=== PATIENT | female | born 1940 | race Caucasian/White ===

== ENCOUNTER 2017-04-17 10:05 | Inpatient (IN) | payer MEDICARE, OTHER ==
[~2017-04-17] VITALS: Ht 157.5 cm; Wt 75.9 kg
[2017-04-17] MEDS ORDERED: OXYC1TAB8 PO (10:30)
[2017-04-17] MEDS ORDERED: SIMV20TA3 PO (10:30)
[2017-04-17] MEDS ORDERED: [UNRECOGNIZED DRUG - CODE] PO (10:30)
[2017-04-17] MEDS ORDERED: SODIUM CHLORIDE 0.9% 1,000ML IVBOLUS ONE (11:00)
[2017-04-17] MEDS ORDERED: SODIUM CHLORIDE FLUSH 10ML SYR IVF ONE (11:00)
[2017-04-17 11:06] LABS: BASOPHILS # (AUTO) 0.01 x10^3/uL (0-0.1); BASOPHILS % (AUTO) 0 % (0-1); EOSINOPHILS # (AUTO) 0.04 x10^3/uL (0-0.4); EOSINOPHILS % (AUTO) 1 % (1-7); LYMPHOCYTES # (AUTO) 0.79 x10^3/uL (1-3.4); LYMPHOCYTES % (AUTO) 12 % (22-44); MD NO; MEAN CORPUSCULAR HEMOGLOBIN 31.7 pg (27.0-34.8); MEAN CORPUSCULAR HGB CONC 33.9 g/dL (32.4-35.8); MEAN CORPUSCULAR VOLUME 93.5 fL (80-100); MEAN PLATELET VOLUME 7.9 fL (7.4-10.4); MONOCYTES # (AUTO) 0.84 x10^3/uL (0.2-0.8); MONOCYTES % (AUTO) 13 % (2-9); NEUTROPHILS # (AUTO) 4.89 x10^3/uL (1.8-6.8); NEUTROPHILS % (AUTO) 75 % (42-75); PLATELET COUNT 147 x10^3/uL (130-400); RED BLOOD COUNT 4.03 x10^6/uL (3.82-5.3); RED CELL DISTRIBUTION WIDTH 15.4 % (9.6-15.2)
[2017-04-17 11:17] LABS: ALBUMIN 3.5 g/dL (3.4-5.0); ANION GAP 8 mmol/L (5-15); CALCIUM 8.5 mg/dL (8.5-10.1); CHLORIDE 102 mmol/L (98-107); CREATININE 0.73 mg/dL (0.55-1.02)
[2017-04-17 11:20] LABS: TROPONIN I < 0.015 ng/mL (0.000-0.045)
[2017-04-17] MEDS ORDERED: ONDANSETRON 2MG/ML, 2ML ONE (11:30)
[2017-04-17] MEDS ORDERED: ONDANSETRON 2MG/ML, 2ML IVPush ONE ×2 (11:30→12:00)
[2017-04-17] MEDS ORDERED: CEFTRIAXONE PMX 1GM/50ML 50 ML ONE (11:50)
[2017-04-17] MEDS ORDERED: AZITHROMYCIN 500 MG in SODIUM CHLORIDE 0.9% 250 ML IV ONE (12:00)
[2017-04-17] MEDS ORDERED: CEFTRIAXONE PMX 1GM/50ML 50 ML IVPB ONE (12:00)
[2017-04-17 12:18] LABS: RAPID INFLUENZA A Negative (Negative); RAPID INFLUENZA B Negative (Negative)
[2017-04-17] MEDS ORDERED: CEFTRIAXONE PMX 1GM/50ML 50 ML IVPB SCH (13:00)
[2017-04-17] MEDS ORDERED: BISACODYL 10 MG SUPP PR PRN (13:00)
[2017-04-17] MEDS ORDERED: ZOLPIDEM 5MG TABLET PO PRN (13:00)
[2017-04-17] MEDS ORDERED: ACETAMINOPHEN 325 MG TABLET PO PRN (13:00)
[2017-04-17] MEDS ORDERED: PHARMACY MAY ADJ FOR RENAL FX MC PRN (13:00)
[2017-04-17] MEDS: AZITHROMYCIN 500 MG in SODIUM CHLORIDE 0.9% 250 ML IV SCH (13:48)
[2017-04-17 13:50] VITALS: BP 132/80
[2017-04-17] MEDS: NS + 20MEQ KCL 1,000 ML IV SCH (14:32)
[2017-04-17] MEDS: OXYcodone/APAP 7.5/325MG TABLET PO SCH ×2 (14:32→20:48)
[2017-04-17] MEDS: HEPARIN 5,000 UNITS/ML, 1ML INJ SCH (14:32)
[2017-04-17 14:43] LABS: MICROSCOPIC AUTO
[2017-04-17 15:04] LABS: CULTURE INDICATED? YES
[2017-04-17] MEDS: CEFTRIAXONE 1,000 MG in SODIUM CHLORIDE 0.9% 50 ML IVPB SCH (15:44)
[2017-04-17] MEDS ORDERED: CEFTRIAXONE 1,000 MG in SODIUM CHLORIDE 0.9% 50 ML IVPB SCH (16:00)
[2017-04-17] MEDS: POTASSIUM CHLORIDE 10 MEQ TABLET.ER PO SCH (17:40)
[2017-04-17 19:04] VITALS: BP 108/70
[2017-04-17] MEDS ORDERED: TOFA5TAB PO (19:25)
[2017-04-17] MEDS: ONDANSETRON 2MG/ML, 2ML IVPB PRN (20:39)
[2017-04-17] MEDS ORDERED: OMEP20CA14 PO (20:48)
[2017-04-17] MEDS ORDERED: SIMVASTATIN 20 MG TABLET PO SCH (21:00)
[2017-04-17] MEDS ORDERED: GABAPENTIN 100 MG CAPSULE PO SCH (21:00)
[2017-04-18 00:36] VITALS: BP 124/76
[2017-04-18] MEDS: ONDANSETRON 2MG/ML, 2ML IVPB PRN (04:17)
[2017-04-18] MEDS: OXYcodone/APAP 7.5/325MG TABLET PO SCH ×3 (04:18→14:18)
[2017-04-18] MEDS: HEPARIN 5,000 UNITS/ML, 1ML INJ SCH ×2 (04:18→14:09)
[2017-04-18] MEDS: NS + 20MEQ KCL 1,000 ML IV SCH ×2 (04:45→16:30)
[2017-04-18 05:11] LABS: ALANINE AMINOTRANSFERASE 23 U/L (12-78); ALBUMIN 3.3 g/dL (3.4-5.0); ANION GAP 5 mmol/L (5-15); CALCIUM 8.1 mg/dL (8.5-10.1); CHLORIDE 106 mmol/L (98-107); CREATININE 0.64 mg/dL (0.55-1.02)
[2017-04-18 05:14] LABS: BASOPHILS # (AUTO) 0.04 x10^3/uL (0-0.1); BASOPHILS % (AUTO) 1 % (0-1); EOSINOPHILS # (AUTO) 0.06 x10^3/uL (0-0.4); EOSINOPHILS % (AUTO) 2 % (1-7); LYMPHOCYTES # (AUTO) 0.99 x10^3/uL (1-3.4); LYMPHOCYTES % (AUTO) 24 % (22-44); MD NO; MEAN CORPUSCULAR HEMOGLOBIN 31.8 pg (27.0-34.8); MEAN CORPUSCULAR HGB CONC 33.8 g/dL (32.4-35.8); MEAN PLATELET VOLUME 8.2 fL (7.4-10.4); MONOCYTES # (AUTO) 0.59 x10^3/uL (0.2-0.8); MONOCYTES % (AUTO) 14 % (2-9); NEUTROPHILS # (AUTO) 2.53 x10^3/uL (1.8-6.8); NEUTROPHILS % (AUTO) 60 % (42-75); PLATELET COUNT 139 x10^3/uL (130-400); RED BLOOD COUNT 3.92 x10^6/uL (3.82-5.3); RED CELL DISTRIBUTION WIDTH 15.6 % (9.6-15.2)
[2017-04-18 05:22] LABS: ALKALINE PHOSPHATASE 27 U/L (45-117); BILIRUBIN,TOTAL 0.7 mg/dL (0.2-1.0); FREE T4 (FREE THYROXINE) 1.22 ng/dL (0.76-1.46); THYROID STIMULATING HORMONE 0.575 mIU/L (0.358-3.740); TOTAL PROTEIN 5.7 g/dL (6.4-8.2)
[2017-04-18] MEDS ORDERED: LEVOTHYROXINE 75 MCG TABLET PO SCH (06:00)
[2017-04-18 07:23] VITALS: BP 127/80
[2017-04-18] MEDS ORDERED: OMEPRAZOLE 20 MG CAPSULE.DR PO SCH (07:30)
[2017-04-18] MEDS: POTASSIUM CHLORIDE 10 MEQ TABLET.ER PO SCH ×3 (08:00→14:19)
[2017-04-18] MEDS ORDERED: HYDROCHLOROTHIAZIDE 12.5 MG CAPSULE PO SCH (09:00)
[2017-04-18] MEDS ORDERED: PROMETHAZINE 25 MG/ML, 1ML ONE (09:43)
[2017-04-18] MEDS ORDERED: PROMETHAZINE 25 MG/ML, 1ML IM PRN ×2 (10:00→10:30)
[2017-04-18 13:05] VITALS: BP 115/72
[2017-04-18] MEDS: AZITHROMYCIN 500 MG in SODIUM CHLORIDE 0.9% 250 ML IV SCH (14:09)
[2017-04-18] MEDS: CEFTRIAXONE 1,000 MG in SODIUM CHLORIDE 0.9% 50 ML IVPB SCH (16:02)
[2017-04-18] MEDS ORDERED: PRED5TAB PO (16:17)
[2017-04-18] MEDS ORDERED: HYDR-3240 PO (16:17)
[2017-04-18] MEDS ORDERED: CEFD300C37 PO (16:55)
[2017-04-18] MEDS ORDERED: DOXY100T10 PO (16:55)
[2017-04-18] MEDS ORDERED: LEVO75TA PO (17:00)
[2017-04-18] MEDS ORDERED: GABA100C PO (17:01)
[2017-04-18] MEDS ORDERED: METH2.5T PO (17:02)
[2017-04-18] MEDS ORDERED: PROM25SU34 RC (17:04)
== END 2017-04-18 17:40 | disposition home or self-care (01) | DRG 73 ==
LOC: ED 11:46 → EDIP 11:47 → ED 12:20 → 5SO 12:54
PROVIDERS: ADMIT Family Medicine; ATTEND Family Medicine
DX: G90.8 Other disorders of autonomic nervous system (principal); J18.9 Pneumonia, unspecified organism; E87.1 Hypo-osmolality and hyponatremia; M06.9 Rheumatoid arthritis, unspecified; E03.9 Hypothyroidism, unspecified; E87.6 Hypokalemia; G89.29 Other chronic pain; I10 Essential (primary) hypertension; K21.9 Gastro-esophageal reflux disease without esophagitis; K22.70 Barrett's esophagus without dysplasia; Z87.01 Personal history of pneumonia (recurrent); Z87.891 Personal history of nicotine dependence
CPT/HCPCS: 36415; 71045; 71250; 80048; 80053; 81001; 82040; 83605; 84145; 84439; 84443; 84484; 85025; 87040; 87077; 87086; 87186; 87400; 93005; 93306; 96365; 96374; J0456; J0696; J1644; J2405; J2550; J3480; J7030; J7050; J7512